=== PATIENT | male | born 1960 | race Asian ===

== ENCOUNTER 2018-10-14 21:50 | Inpatient (IN) | payer SELFPAY ==
[~2018-10-14] VITALS: Ht 170.2 cm; Wt 55.6 kg
[2018-10-14 22:22] LABS: BASOPHILS % (AUTO) 0.1 % (0-1); EOSINOPHILS % (AUTO) 0.1 % (0-6); HEMOGLOBIN 16.1 g/dl (14.0-17.9); LYMPHOCYTES # (AUTO) 0.8 X10'3 (1.1-4.8); LYMPHOCYTES % (AUTO) 5.5 % (21-51); MEAN CORPUSCULAR HEMOGLOBIN 30.4 PG (27.0-31.0); MEAN CORPUSCULAR HGB CONC 34.3 g/dL (33.0-36.5); MEAN CORPUSCULAR VOLUME 88.7 FL (78-98); MEAN PLATELET VOLUME 7.4 FL (7.4-10.4); MONOCYTES # (AUTO) 1.6 X10'3 (0-0.9); MONOCYTES % (AUTO) 11.1 % (2-12); NEUTROPHILS # (AUTO) 12.3 X10'3 (1.8-7.7); NEUTROPHILS % (AUTO) 83.2 % (42-75); PLATELET COUNT 218 X10'3 (140-440); RED CELL DISTRIBUTION WIDTH 13.9 % (11.5-14.5); WHITE BLOOD COUNT 14.8 X10'3 (4.5-11.0)
[2018-10-14 22:42] LABS: ALANINE AMINOTRANSFERASE 53 U/L (12-78); ALBUMIN/GLOBULIN RATIO 1.1 (1.1-1.5); ALKALINE PHOSPHATASE 61 IU/L (46-116); ANION GAP 10 (8-16); ASPARTATE AMINO TRANSFERASE 38 U/L (10-37); BILIRUBIN,TOTAL 1.3 MG/DL (0.1-1.0); BLOOD UREA NITROGEN 19 MG/DL (7-18); BUN/CREATININE RATIO 17.1 (5.4-32.0); CALCIUM 9.6 MG/DL (8.5-10.1); CHLORIDE 92 MMOL/L (99-107); CREATININE 1.11 MG/DL (0.60-1.10); GLUCOSE 156 MG/DL (70-104); POTASSIUM 3.9 MMOL/L (3.5-5.1); SODIUM 130 MMOL/L (135-145); TOTAL CARBON DIOXIDE 28.2 MMOL/L (24-32); TOTAL PROTEIN 7.6 G/DL (6.4-8.2); eGFR 68 ML/MIN
[2018-10-14] MEDS ORDERED: normal saline 1000ML IV soln IVB ONE (22:45)
[2018-10-14] MEDS ORDERED: iohexol 300mg/ml 100ml inj. ONE (22:55)
[2018-10-14 23:03] LABS: LIPASE 91 U/L (73-393)
[2018-10-14] MEDS ORDERED: morphine 4 MG/ML inj SYRINge IV ONE (23:05)
--- NOTE | 2018-10-14 23:53 | NUR ---
FAMILY STEPPING OUT FOR APPROX 10 MIN PT TOLERATED NG WELL
[2018-10-14] MEDS ORDERED: normal saline 1000ml 1,000 ML IVB ONE (23:56)
--- NOTE | 2018-10-14 23:57 | NUR ---
ALEJA GUERRERO, ANOTHER LITER OF FLUID HUNG AND DR PRESCOTT MADE AWARE AND AGREES.
[2018-10-15] VITALS (9 sets, daily range): BP systolic 88–124; BP diastolic 59–90
[2018-10-15] MEDS ORDERED: pantoprazole 40 MG vial IV ONE (01:00)
[2018-10-15] MEDS ORDERED: morphine 2 MG/ML inj. syringe IV PRN ×2 (01:05)
[2018-10-15] MEDS ORDERED: ondansetron/PF 4mg/2ml inj IV PRN (01:05)
[2018-10-15] MEDS ORDERED: acetaminophen 325mg tablet PO PRN ×2 (01:05)
[2018-10-15] MEDS ORDERED: magnesium hydroxide 30ml (MOM) UD suspension PO PRN (01:05)
[2018-10-15] MEDS ORDERED: mag hydrox/Alum hydrox/simeth 30ml oral suspension PO PRN (01:05)
[2018-10-15] MEDS ORDERED: albuterol 2.5 MG/3 ML nebule NEB PRN (01:05)
[2018-10-15] MEDS ORDERED: NO HOME MEDS (01:07)
--- NOTE | 2018-10-15 01:30 | NUR ---
Pt left the floor now to go to the GI lab.
[2018-10-15] MEDS ORDERED: fentaNYL/PF 50MCG/1 ML 2ML syringe ONE (01:44)
[2018-10-15] MEDS ORDERED: MIDAZolam 5mg/5ml vial ONE (01:44)
[2018-10-15] MEDS: normal saline 1000ml 1,000 ML IV SCH ×2 (03:00→11:03)
[2018-10-15] MEDS: piperacillin/tazo 3.375gm/50ml 50 ML IV SCH ×2 (03:33→08:24)
--- NOTE | 2018-10-15 06:25 | NUR ---
Problems reprioritized. Patient report given, questions answered & plan of care reviewed with SHREE Lock.
--- NOTE | 2018-10-15 06:45 | NUR ---
Patient in room PCU 3011. I have received report from SHREE Santana and had the opportunity to ask questions and assume patient care.
[2018-10-15 06:56] LABS: BASOPHILS % (AUTO) 0.3 % (0-1); EOSINOPHILS % (AUTO) 0.4 % (0-6); HEMATOCRIT 45.6 % (42.0-52.0); HEMOGLOBIN 15.4 g/dl (14.0-17.9); LYMPHOCYTES # (AUTO) 1.4 X10'3 (1.1-4.8); LYMPHOCYTES % (AUTO) 11.1 % (21-51); MEAN CORPUSCULAR HEMOGLOBIN 30.4 PG (27.0-31.0); MEAN CORPUSCULAR HGB CONC 33.8 g/dL (33.0-36.5); MEAN PLATELET VOLUME 7.5 FL (7.4-10.4); MONOCYTES # (AUTO) 1.8 X10'3 (0-0.9); MONOCYTES % (AUTO) 14.4 % (2-12); NEUTROPHILS # (AUTO) 9.2 X10'3 (1.8-7.7); NEUTROPHILS % (AUTO) 73.8 % (42-75); PLATELET COUNT 178 X10'3 (140-440); RED BLOOD COUNT 5.06 X10'6 (4.70-6.10); RED CELL DISTRIBUTION WIDTH 14.2 % (11.5-14.5); WHITE BLOOD COUNT 12.5 X10'3 (4.5-11.0)
[2018-10-15 06:58] LABS: CLARITY,URINE CLEAR (Clear); COLOR,URINE YELLOW (Yellow); GLUCOSE, URINE NEGATIVE (Neg); KETONES,URINE NEGATIVE (Neg); LEUKOCYTE ESTERASE ,URINE NEGATIVE (Neg); NITRITES, URINE NEGATIVE (Neg); OCCULT BLOOD,URINE NEGATIVE (Neg); PROTEIN,URINE NEGATIVE (Neg); UROBILINOGEN,URINE 0.2 E.U/dL (0.2-1.0)
[2018-10-15 06:59] LABS: UA COLLECTION TYPE URINAL
[2018-10-15 07:08] LABS: ALBUMIN 3.3 G/DL (3.4-5.0); ANION GAP 4 (8-16); BLOOD UREA NITROGEN 18 MG/DL (7-18); CALCIUM 8.5 MG/DL (8.5-10.1); CHLORIDE 101 MMOL/L (99-107); GLUCOSE 99 MG/DL (70-104); MAGNESIUM 2.5 MG/DL (1.5-2.4); POTASSIUM 3.9 MMOL/L (3.5-5.1); SODIUM 137 MMOL/L (135-145); eGFR 86 ML/MIN
--- NOTE | 2018-10-15 10:26 | NUR ---
per pts family [facility] pt had large BM with flatus, Dr. Alvarez notified. pt does not speak any [place].
--- NOTE | 2018-10-15 10:45 | NUR ---
PER DR. VASQUEZ D/C NG TUBE. NG D/C WITH NO COMPLICATIONS. PER DR. VASQUEZ CLEAR LIQUID DIET ORDERED. PT GIVEN WATER AND APPLE JUICE
[2018-10-15] MEDS: pantoprazole 40MG/NS 100ML BAG 100 ML IV SCH ×2 (10:55→11:00)
[2018-10-15] MEDS ORDERED: POLY17PO10 PO (14:15)
--- NOTE | 2018-10-15 15:15 | NUR ---
PT DISCHARGED IN STABLE CONDITION. ALL BELONGINGS SENT WITH PT AND FAMILY. IV'S D/C'D CANULA INTACT
== END 2018-10-15 15:15 | disposition home or self-care (01) | DRG 344 ==
LOC: ER 21:51 → PCU 3S 10-15 02:34 → CMPBEDREQ 10-15 02:59
PROVIDERS: ADMIT Hospitalist; ATTEND Hospitalist
PROC: 0D9670Z Drainage of Stomach with Drainage Device, Via Natural or Artificial Opening (ICD-10-PCS; 2018-10-14)
PROC: 0D9N8ZZ Drainage of Sigmoid Colon, Via Natural or Artificial Opening Endoscopic (ICD-10-PCS; principal; 2018-10-15)
DX: K55.9 Vascular disorder of intestine, unspecified (principal); K56.2 Volvulus; E87.1 Hypo-osmolality and hyponatremia; E86.0 Dehydration; J45.909 Unspecified asthma, uncomplicated; R09.02 Hypoxemia; G89.29 Other chronic pain; M54.2 Cervicalgia; Z90.49 Acquired absence of other specified parts of digestive tract
CPT/HCPCS: 36415; 74018; 74177; 80048; 80053; 81003; 83605; 83690; 83735; 84100; 85025; 85610; 87070; 94760; 96361; 96374; 99152; 99153; 99285; A4620; C9113; G0378; J2250; J2270; J2543; J3010; J7030; Q9967